=== PATIENT | female | born 1955 | race Caucasian/White ===

== ENCOUNTER → 2024-11-03 11:03 | Outpatient (REF) | payer OTHER, SELFPAY | LOC: WDC 11:03 | PROVIDERS: ATTENDING PHYSICIAN Family Medicine | DX: M81.0 Age-related osteoporosis without current pathological fracture (principal); Z12.31 Encounter for screening mammogram for malignant neoplasm of breast | CPT/HCPCS: 77063; 77067; 77080 ==

== ENCOUNTER → 2024-11-22 09:33 | Outpatient (REF) | payer OTHER, SELFPAY | LOC: WDC 09:33 | PROVIDERS: ATTENDING PHYSICIAN Family Medicine | DX: R92.8 Other abnormal and inconclusive findings on diagnostic imaging of breast (principal) | CPT/HCPCS: 77065 ==

== ENCOUNTER → 2024-12-22 07:38 | Outpatient (REF) | payer OTHER, SELFPAY ==
--- NOTE | 2024-12-22 09:19 | OID.BR.INTR ---
[facility] Breast Navigator - Initial
- -
Date of Contact: 12/22/24
Met with patient. Patient given written information on navigator service available at [facility]. Will follow up as needed per protocol.
== END ==
LOC: WDC 07:38
PROVIDERS: ATTENDING PHYSICIAN Family Medicine
DX: R92.1 Mammographic calcification found on diagnostic imaging of breast (principal)
CPT/HCPCS: 88305; 19081; 76098; A4648

== ENCOUNTER 2025-08-14 05:12 | Emergency (ER) | payer OTHER, SELFPAY ==
[2025-08-14 05:15] VITALS: BP 136/79
[2025-08-14 05:53] VITALS: BP 119/76
[2025-08-14 06:00] VITALS: BP 130/75
[2025-08-14 06:07] LABS: Hematocrit 40.9 % (37.0-47.0); Hemoglobin 13.0 g/dL (12.0-16.0); Mean Corp Hgb Conc. 31.8 g/dL (33.0-37.0); Mean Corpuscular Volume 95.8 fL (81.0-99.0); Nucleated Red Blood Cells % 0 %; Platelet Count 229 10^3/uL (130-400); Red Cell Dist. Width 12.9 % (11.5-14.5)
--- NOTE | 2025-08-14 06:16 | ED.GENMED ---
History of Present Illness
<Margaret Guerrero MD, Resident - Last Filed: 08/14/25 12:33>
General
Chief Complaint: Abdominal Pain
Source: patient
Time Seen by Provider: 08/14/25 06:01
History of Present Illness
History of Present Illness:
70-year-old female with PMHx hyperlipidemia presents sudden onset abdominal. Started around 2:30 this morning. Not associated with nausea and vomiting. Is mostly localized across the upper abdomen. It radiates into the lower chest bilaterally.
She describes the pain as constant, burning and 8/10 in severity. It has gotten better since being in the ER. Walking makes it better, laying down makes it worse although laying in the ER so far she has felt better. She has not had any recent NSAID
use, she seldom drinks alcohol and no recent illness. She had a burger for dinner last night and 6-8 oranges with her grandkids, but no abdominal pain before going to bed. Her sister and son have had gallbladder and kidney stone issues. She denies
any fever, chills, URI symptoms, N/V/D/C, heart palpitations, SOB. Last BM was last night. She has been having more BM in the last 2 months and a 6lbs weight loss. Last colonoscopy was a year and a half ago and she reports no issues.
Past History
<Margaret Guerrero MD, Resident - Last Filed: 08/14/25 12:33>
Past History
ED Past Medical History: Hypercholesterolemia
ED Past Surgical History: None
Social History
Tobacco: Non-smoker
Alcohol: None
Drug: None
Family History
Family History: CAD (Mom and dad) and Other (Siblings and son - Kidney stones and gallbladder issues )
Review of Systems
<Margaret Guerrero MD, Resident - Last Filed: 08/14/25 12:33>
Review of Systems
Allergies reviewed?: Yes
Constitutional: Reports weight loss (6 lbs in last 2 months )
EENT: Reports no symptoms
Respiratory: Reports no symptoms
Cardiac: Reports no symptoms
ABD/GI: Reports abdominal pain
: Reports no symptoms
Musculoskeletal: Reports no symptoms
Skin: Reports no symptoms
Neurological: Reports no symptoms
Endocrine: Reports no symptoms
Psychiatric: Reports no symptoms
Phy Exam
<Margaret Guerrero MD, Resident - Last Filed: 08/14/25 12:33>
Physical Exam
Physical Exam:
General: Overall well appearing, non-toxic
Head: atraumatic
Cardiac: Regular S1, S2, no murmurs
Respiratory: Clear breath sounds bilaterally
Abdomen: RLQ, mid-epigastric tenderness with deep palpation. Griffith's sign negative. Rebound tenderness in RLQ. Non-distended. Normal BSx4
Extremities: No peripheral edema, no erythema
Skin: No rash
Psych: Calm, non-anxious
Course
<Margaret Guerrero MD, Resident - Last Filed: 08/14/25 12:33>
Orders/Labs/Results
Orders:
Orders
08/14/25 05:20
Electrocardiogram (*1) Urgent
Reason for Study: Abdominal Pain
EKG- Treatment ONCE
08/14/25 05:48
Basic Metabolic Panel Urgent
Complete Blood Count/With Diff Urgent
Lipase Urgent
08/14/25 06:51
US Abdomen Complete/Upper Urgent
Comment:
Reason For Exam: epigastric pain
08/14/25 07:11
Comprehensive Metabolic Panel Urgent
Urinalysis Reflex To Culture Urgent
Date Specimen was Collected: 08/14/25
Time Specimen was Collected: 06:55
08/14/25 10:30
Troponin I Urgent
Abnormal Lab Results
08/14/25 08/14/25
05:48 07:11
MCHC 31.8 L g/dL
(33.0-37.0)
MPV 10.5 H fL
(7.4-10.4)
Absolute Monos (auto) 0.7 H 10^3/uL
(0.1-0.6)
Monocytes % 11.0 H %
(1.7-9.3)
Chloride 108 H mmol/L 110 H mmol/L
(98-107) (98-107)
Glucose 105 H mg/dl
(70-99)
08/14/25 05:48
08/14/25 07:11
Vital Signs
Initial and Last Documented VS:
Initial Vital Signs
Temp Pulse Resp BP Pulse Ox
97.7 F 53 20 136/79 98
08/14/25 05:15 08/14/25 05:15 08/14/25 05:15 08/14/25 05:15 08/14/25 05:15
Last Documented Vital Signs
Temp Pulse Resp BP Pulse Ox
97.5 F 82 20 121/77 99
08/14/25 08:29 08/14/25 08:29 08/14/25 08:29 08/14/25 08:29 08/14/25 08:29
<Xu Do MD - Last Filed: 08/14/25 16:00>
Orders/Labs/Results
Orders:
Orders
08/14/25 05:20
Electrocardiogram (*1) Urgent
Reason for Study: Abdominal Pain
EKG- Treatment ONCE
08/14/25 05:48
Basic Metabolic Panel Urgent
Complete Blood Count/With Diff Urgent
Lipase Urgent
08/14/25 06:51
US Abdomen Complete/Upper Urgent
Comment:
Reason For Exam: epigastric pain
08/14/25 07:11
Comprehensive Metabolic Panel Urgent
Urinalysis Reflex To Culture Urgent
Date Specimen was Collected: 08/14/25
Time Specimen was Collected: 06:55
08/14/25 10:30
Troponin I Urgent
Abnormal Lab Results
08/14/25 08/14/25
05:48 07:11
MCHC 31.8 L g/dL
(33.0-37.0)
MPV 10.5 H fL
(7.4-10.4)
Absolute Monos (auto) 0.7 H 10^3/uL
(0.1-0.6)
Monocytes % 11.0 H %
(1.7-9.3)
Chloride 108 H mmol/L 110 H mmol/L
(98-107) (98-107)
Glucose 105 H mg/dl
(70-99)
08/14/25 05:48
08/14/25 07:11
Vital Signs
Initial and Last Documented VS:
Initial Vital Signs
Temp Pulse Resp BP Pulse Ox
97.7 F 53 20 136/79 98
08/14/25 05:15 08/14/25 05:15 08/14/25 05:15 08/14/25 05:15 08/14/25 05:15
Last Documented Vital Signs
Temp Pulse Resp BP Pulse Ox
97.5 F 82 20 121/77 99
08/14/25 08:29 08/14/25 08:29 08/14/25 08:29 08/14/25 08:29 08/14/25 08:29
<Margaret Guerrero MD, Resident - Last Filed: 08/14/25 12:33>
MDM/Problems Addressed
Differential Diagnosis Includes:
Gallstone related etiology (Biliary colic, acute cholecystitis, Gallstone pancreatitis, etc), Pancreatitis, Appendicitis, Peptic ulcer disease, ischemic bowel disease, perforation, severe GERD, IN
MDM/Problems Addressed:
CBC, CMP, lipase, RUQ US to eval for gallstone etiology. Lipase to help exclude acute pancreatitis. Rebound tenderness concerning for acute appendicitis. Pain improving in ED more concerning for colicky episode rather than an etiology with constant
pain. EKG reassuring and based on history unlikely to be cardiac etiology.
LFTs and lipase wnl decreasing suspicion for gallbladder etiology or pancreatitis. RUQ U/S unremarkable. Troponin (-). Okay to go home and f/u with GI for increased BM in past two months. Instructions to return to ED if intense ab pain returns.
<Margaret Guerrero MD, Resident - Last Filed: 08/14/25 12:33>
*Pulse Oximetry
SaO2: 98
Oxygen Mode of Delivery: Room air
Patient hypoxic: no
*Critical Care Note
Total Time (30-74mins, 75-104mins- exclusive of procedures): Not Applicable
Data Reviewed
Review of Other/Old Records Reveals: Radiology Studies (Prior benign breast biopsy 11/2024, prior RUQ US 07/14 simple hepatic and renal cysts, no gallstones present )
Source: patient
<Xu Do MD - Last Filed: 08/14/25 16:00>
*EKG
Interpreted by ED Provider?: Yes
EKG Intrepretation Date: 08/14/25
Heart Rate: 61
Rate: normal
Rhythm: PVC's
[place]: normal axis
ED Attending Note
<Margaret Guerrero MD, Resident - Last Filed: 08/14/25 12:33>
-
Portions of this chart may have been created with voice recognition software.� Occasional wrong word or��sound alike� substitutions may have occurred due to the inherent limitations of voice recognition software.
<Xu Do MD - Last Filed: 08/14/25 16:00>
ED Attending Note
Patient seen and examined by attending physician: Yes
ED Attending Note:
Patient presents to ED secondary to sudden onset of abdominal pain, which woke the patient up from sleep around 2:30 AM this morning. Abdominal pain described as 'burning', wrapping around into her upper abdomen, mildly improved when sitting up or
standing up, without exacerbating factors. Patient reports having had burgers with salad for dinner around 5:30 PM. Denies fever or chills. Denies nausea or vomiting. Denies diarrhea. Denies trauma. Denies recent change in activities. Denies
recent illness. Denies recent change in medications or diet. Denies previous history of similar symptoms. Patient's medical history is significant for hypercholesterolemia. There is family history of gallstones or kidney stones. Of note, since
onset of symptoms, patient states that her abdominal pain has gradually decreased in intensity
Physical Exam
General: mild distress, not acutely ill. afebrile
Head: nc/at. eomi
Neck: supple. normal range of motion
Heart: s1/s2 regular rate and rhythm
Lungs: no acute respiratory distress. clear bilaterally
Abdomen: normal bowel sounds. no distention. mild epigastric/RUQ tenderness. no CVA tenderness
Neuro: alert and oriented x 3. no focal neurological deficits
Skin: no rash
Psychiatric: well kept. interactive and cooperative
Extremities: no edema. no calf tenderness.
History and exam concerning for biliary colic versus pancreatitis versus gastritis versus less likely ACS/appendicitis. Will check blood work along with abdominal ultrasound and reassess.
US abdomen: no acute findings.
Trop: negative.
Pt remains symptom free during extended course of observation. Repeat abd exam: soft and nontender. After discussion, decision made to discharge patient for an outpatient evaluation with pcp/GI. Return precautions provided, i.e. fever/recurrent
pain/vomiting. Pt expresses understanding at time of discharge
Discharge Plan
Departure
Patient Disposition: Home (Routine Discharge)
Date of Disposition: 08/14/25
Time of Disposition: 11:34
Patient with high blood pressure during this ER visit?: Yes
Discharge Problem:
Abdominal pain
Instructions: Abdominal Pain
Prescriptions:
No Action
No Current Medications
0
Referrals:
So Guan MD [Family Provider, Family Practice]
Celi Benavides DO [Active, Gastroenterology]
Activity Restrictions/Additional Instructions:
Please f/u with family doctor and/or GI doctor for further evaluation of increased bowel movements and abdominal pain. If similar symptoms return, please come back to the ER.
Interventions
Interventions:
*Risk Screen - Suicide Last Done: 08/14/25 05:15
*General Assessment Last Done: 08/14/25 08:29
*Neglect/Abuse Screening Last Done: 08/14/25 08:29
*ED- Fall Risk Assessment Last Done: 08/14/25 08:29
*ED COVID-19 Vaccine History Last Done: 08/14/25 08:29
*ED Influenza Vaccine History Last Done: 08/14/25 08:29
*Nursing Disposition Last Done: 08/14/25 12:41
GB-Tamfhi-Xozxerodfe Assessment Last Done: 08/14/25 08:29
Discharge Date and Time
Print Language: IRISH
[2025-08-14 06:37] LABS: Blood Urea Nitrogen 16 mg/dl (7-17); Calcium 9.1 mg/dl (8.4-10.2); Carbon Dioxide 25 mmol/L (22-30); Chloride 108 mmol/L (98-107); Glucose 98 mg/dl (70-99); Lipase 170 U/L (23-300); Sodium 136 mmol/L (135-145); eGFR > 60.00
[2025-08-14 07:26] LABS: Urine Character Clear (Clear)
[2025-08-14 07:33] VITALS: BP 132/78
[2025-08-14 08:00] VITALS: BP 121/77
[2025-08-14 08:06] LABS: ALT (SGPT) 19 U/L (0-35); AST (SGOT) 27 U/L (14-36); Albumin 4.0 g/dl (3.5-5.0); Alkaline Phosphatase 41 U/L (38-126); Blood Urea Nitrogen 14 mg/dl (7-17); Calcium 8.4 mg/dl (8.4-10.2); Carbon Dioxide 24 mmol/L (22-30); Chloride 110 mmol/L (98-107); Glucose 105 mg/dl (70-99); Potassium 4.1 mmol/L (3.5-5.1); Sodium 139 mmol/L (135-145); Total Protein 6.4 g/dl (6.3-8.2); eGFR > 60.00
[2025-08-14 08:29] VITALS: BP 121/77
[2025-08-14 11:05] LABS: Troponin I < 0.012 ng/ml
== END 2025-08-14 12:41 | disposition home or self-care (01) ==
LOC: EMR 05:12
PROVIDERS: Emergency Medicine; EMERGENCY PHYSICIAN Emergency Medicine; FAMILY PHYSICIAN Family Medicine
DX: R10.13 Epigastric pain (principal); I49.3 Ventricular premature depolarization; E78.00 Pure hypercholesterolemia, unspecified; Z82.49 Family history of ischemic heart disease and other diseases of the circulatory system
CPT/HCPCS: 99284; 76700; 80048; 80053; 81003; 83690; 84484; 85025; 93005